=== PATIENT | male | born 1940 | race Asian ===

== ENCOUNTER 2017-02-01 10:22 | Outpatient (CLI) | payer OTHER | END 2017-02-01 11:45 | disposition home or self-care (01) | LOC: US 10:22 | DX: M79.604 Pain in right leg (principal) ==

== ENCOUNTER 2020-09-09 10:03 | Outpatient (CLI) | payer OTHER | END 2020-09-09 23:18 | disposition home or self-care (01) | LOC: MRI 10:03 | PROVIDERS: ATTEND Orthopaedic Surgery Orthopaedic Surgery of the Spine | DX: M51.36 Other intervertebral disc degeneration, lumbar region (principal) ==